=== PATIENT | female | born 1985 | race Caucasian/White ===

== ENCOUNTER 2018-11-13 22:00 | Emergency (ER) | payer OTHER ==
[~2018-11-13] VITALS: Ht 162.6 cm; Wt 70.5 kg
[2018-11-13] MEDS ORDERED: PROM12.56 PO (22:07)
[2018-11-13] MEDS ORDERED: IBUP-1022 PO ×2 (22:07)
[2018-11-13] MEDS ORDERED: CLON-412 PO (22:07)
[2018-11-13] MEDS ORDERED: DICY20TA11 PO (22:07)
[2018-11-13] MEDS ORDERED: TRAZ-163 PO (22:07)
[2018-11-13] MEDS ORDERED: GASTROGRAFIN SOLUTION 30ML (Q9963) As Ordered ONE (22:36)
[2018-11-13 22:48] LABS: BASO % 0.3 % (0.0-1.0); EOS % 0.3 % (0.0-3.0); HEMATOCRIT 40.3 % (36.0-47.0); HEMOGLOBIN 13.6 g/dl (12.0-15.5); LYMPH # 3.1 10^3/uL (1.5-4.5); LYMPH % 32.8 % (24.0-44.0); MEAN CORPUSCULAR HEMOGLOBIN 31.5 pg (27.0-33.0); MEAN CORPUSCULAR HGB CONC 33.7 g/dl (32.0-36.5); MEAN CORPUSCULAR VOLUME 93.3 fl (80.0-96.0); MONO # 0.7 10^3/uL (0.0-0.8); MONO % 7.1 % (0.0-5.0); NEUTROPHILS # 5.5 10^3/uL (1.8-7.7); NEUTROPHILS % 59.3 % (36.0-66.0); PLATELET COUNT, AUTOMATED 325 10^3/uL (150-450); RED BLOOD COUNT 4.32 10^6/uL (4.00-5.40); WHITE BLOOD COUNT 9.3 10^3/uL (4.0-10.0)
[2018-11-13 23:08] LABS: ALBUMIN 3.9 GM/DL (3.2-5.2); ALT/SGPT 21 U/L (12-78); BILIRUBIN,DIRECT 0.2 MG/DL (0.0-0.2); BILIRUBIN,TOTAL 0.5 MG/DL (0.2-1.0); BLOOD UREA NITROGEN 18 MG/DL (7-18); CALCIUM LEVEL 8.7 MG/DL (8.5-10.1); CARBON DIOXIDE LEVEL 24 MEQ/L (21-32); CHLORIDE LEVEL 101 MEQ/L (98-107); CREATININE FOR GFR 1.05 MG/DL (0.55-1.30); GLOMERULAR FILTRATION RATE > 60.0 (>60); GLUCOSE, FASTING 99 MG/DL (70-100); LIPASE 126 U/L (73-393); POTASSIUM SERUM 3.9 MEQ/L (3.5-5.1); SODIUM LEVEL 137 MEQ/L (136-145); TOTAL PROTEIN 7.4 GM/DL (6.4-8.2)
[2018-11-13 23:21] LABS: HCG, SERUM QUALITATIVE NEGATIVE (NEGATIVE)
[2018-11-13] MEDS: GASTROGRAFIN SOLUTION 30ML PO SCH (23:35)
[2018-11-14] MEDS: GASTROGRAFIN SOLUTION 30ML PO SCH (00:07)
[2018-11-14] MEDS ORDERED: ISOVUE-370 76% 100ML VIAL (Q9967) As Ordered ONE (01:26)
--- NOTE | 2018-11-14 02:06 | REPVR ---
EXAM: CT Abdomen and Pelvis With Contrast EXAM DATE/TIME: 11/14/18 (1:35am) CLINICAL HISTORY: 33 year old female with abdominal pain TECHNIQUE: Axial computed tomography images of the abdomen and pelvis with intravenous contrast. All CT scans at this facility use at least one of these dose optimization techniques: automated exposure control; mA and/or kV adjustment per patient size (includes targeted exams where dose is matched to clinical indication); or iterative reconstruction. Coronal and sagittal reformatted images were created and reviewed. CONTRAST: 100 ml of Iso 370 administered intravenously COMPARISON: No relevant prior studies available FINDINGS: Lower thorax: No acute findings. No pleural effusions. ABDOMEN: Liver: Normal. No solid mass. Gallbladder and bile ducts: Previous cholecystectomy. No ductal dilatation. Pancreas: Normal. No ductal dilatation. Spleen: Normal. No splenomegaly. Adrenals: Normal. No mass. Kidneys and ureters: Normal. No hydronephrosis. Stomach and bowel: Normal. No bowel obstruction. No mucosal thickening. Appendix: No evidence of appendicitis. PELVIS: Bladder: Unremarkable as visualized. Reproductive: Unremarkable as visualized. ABDOMEN and PELVIS: Intraperitoneal space: Normal. No free air. No significant fluid collection. Bones/joints: No acute fracture nor dislocation. Soft tissues: Unremarkable. Vasculature: Normal. No abdominal aortic aneurysm. Lymph nodes: Normal. No enlarged lymph nodes. IMPRESSION: No acute findings. Previous cholecystectomy. Electronically signed by: Lenore Freeman On 11/14/2018 02:06:15 AM
[2018-11-14] MEDS ORDERED: GI COCKTAIL 50ML BTL(HYOSCYAMINE/MAALOX/LIDOCAINE VISCOUS)(1:3:1) PO ONE (02:15)
[2018-11-14 02:33] VITALS: BP 117/57
== END 2018-11-14 02:35 | disposition home or self-care (01) ==
LOC: M ED 22:00
DX: K29.70 Gastritis, unspecified, without bleeding (principal); R10.9 Unspecified abdominal pain; F32.9 Major depressive disorder, single episode, unspecified; F41.9 Anxiety disorder, unspecified; Z88.8 Allergy status to other drugs, medicaments and biological substances; Z88.1 Allergy status to other antibiotic agents; Z79.899 Other long term (current) drug therapy; Z79.1 Long term (current) use of non-steroidal anti-inflammatories (NSAID)
CPT/HCPCS: 43753; 74177; 80048; 80076; 83690; 84703; 85025; 99284; Q9967